=== PATIENT | male | born 1945 | race Caucasian/White ===

== ENCOUNTER 2018-10-17 05:46 | Emergency (ER) | payer MEDICARE, OTHER ==
[~2018-10-17] VITALS: Ht 170.2 cm; Wt 78.2 kg
[2018-10-17 05:53] VITALS: BP 148/70; PULSE 66; RESP 18; Ht 170.2 cm; Wt 78.2 kg
[2018-10-17] MEDS ORDERED: HDRP454O TOP (06:52)
--- NOTE | 2018-10-17 08:51 | ERD ---
ER Documentation Chief Complaint Chief Complaint nosebleeding x 2 hours HPI 73-year-old male presenting with nasal bleeding. Patient states started this morning. Patient is on Plavix and aspirin after an angiogram due to a stroke 2 years ago. Patient denies any recent trauma. He has not put any medication in the nose. Denies any allergies to medications. Medical problems of stroke, hypercholesterolemia and hypertension. Social history stopped smoking 15 years ago. Surgical history is angiogram and heart stents. ROS All systems reviewed and are negative except as per history of present illness. Medications Home Meds Active Scripts Hydrophilic Base* (Aquaphor*) 454 Gm-Topical Oint, 1 APPLIC TOP BID, #1 JAR Prov:BRITTANEY SAL PA-C 10/17/18 Allergies Allergies: Coded Allergies: No Known Drug Allergies (Verified Allergy, Unknown, 10/17/18) PMhx/Soc Hx Alcohol Use: Yes Hx Substance Use: No Hx Tobacco Use: No Smoking Status: Former smoker FmHx Family History: No diabetes, No coronary disease, No other Physical Exam Vitals Vital Signs Date Temp Pulse Resp B/P (MAP) Pulse Ox O2 O2 Flow FiO2 Time Delivery Rate 10/17/18 97.1 66 18 148/70 98 05:53 (96) Physical Exam GENERAL: The patient is well-appearing, well-nourished, in no acute distress HEENT: Atraumatic. Conjunctivae are pink. Pupils equal, round, and reactive to light. There is no scleral icterus. Tympanic membranes clear bilaterally. Oropharynx clear. Dried blood within anterior nasal passage. No blood in posterior nasal passage and no active bleeding. CHEST: Clear to auscultation bilaterally. There are no rales, wheezes or rhonchi. HEART: Regular rate and rhythm. No murmurs, clicks, rubs or gallops. No S3 or S4. SKIN: There is no apparent rash or petechiae. The skin is warm and dry. Procedures/MDM ER Course: No bleeding noted on exam. MDM: 73 yr old male complaining of nasal bleeding. Vitals are stable and I have low suspicion for posterior epistaxis. Patient did not have bleeding at the time of my evaluation and they recommended to apply Aquaphor as this is likely due to dry air and use of anticoagulation drugs. Discharged with recommendations of using a nasal clip at home and if bleeding returns and does not resolve to return to the ER as he likely needs a Rhino Rocket. All questions answered at discharge Departure Diagnosis: Primary Impression: Epistaxis Condition: Stable Patient Instructions: Epistaxis (Adult) Referrals: [facility] YOU HAVE RECEIVED A MEDICAL SCREENING EXAM AND THE RESULTS INDICATE THAT YOU DO NOT HAVE A CONDITION THAT REQUIRES URGENT TREATMENT IN THE EMERGENCY DEPARTMENT. FURTHER EVALUATION AND TREATMENT OF YOUR CONDITION CAN WAIT UNTIL YOU ARE SEEN IN YOUR DOCTORS OFFICE WITHIN THE NEXT 1-2 DAYS. IT IS YOUR RESPONSIBILITY TO MAKE AN APPOINTMENT FOR FOLOW-UP CARE. IF YOU HAVE A PRIMARY DOCTOR --you should call your primary doctor and schedule an appointment IF YOU DO NOT HAVE A PRIMARY DOCTOR YOU CAN CALL OUR PHYSICIAN REFERRAL HOTLINE AT IF YOU CAN NOT AFFORD TO SEE A PHYSICIAN YOU CAN CHOSE FROM THE FOLLOWING [facility] [address] [facility] [address] [facility] [address] [facility] [address] [facility] [address] [facility] [facility] [address] Additional Instructions: FOLLOW UP WITH YOUR PRIMARY CARE PHYSICIAN TOMORROW.Return to this facility if you are not improving as expected. BRITTANEY SAL PA-C Oct 17, 2018 08:50
[2018-10-17] MEDS ORDERED: AMOX1TAB10 PO ×2 (09:46→15:31)
[2018-10-17] MEDS ORDERED: OXYC-279 PO ×2 (09:46→15:31)
== END 2018-10-17 07:13 | disposition home or self-care (01) ==
LOC: FTE 05:46
DX: R04.0 Epistaxis (principal)
CPT/HCPCS: 99282

== ENCOUNTER 2018-10-17 08:55 | Emergency (ER) | payer MEDICARE, OTHER ==
[~2018-10-17] VITALS: Ht 170.2 cm; Wt 78.6 kg
[~2018-10-17 08:55] MED LIST: HDRP454O TOP
[2018-10-17 08:57] VITALS: BP 169/79; PULSE 77; RESP 15; Ht 170.2 cm; Wt 78.6 kg
[2018-10-17] MEDS ORDERED: OXYC-279 PO ×2 (09:46→15:31)
[2018-10-17] MEDS ORDERED: AMOX1TAB10 PO ×2 (09:46→15:31)
--- NOTE | 2018-10-17 14:34 | ERD ---
ER Documentation Chief Complaint Chief Complaint non traumatic bilateral nose bleed; was just dc from ED2. HPI 73-year-old male presenting with continued nasal bleeding. Patient was recently discharged from the ER but has had continued bleeding of the left nostril. Patient denies any traumatic injuries. Patient is taking Plavix and aspirin. Patient has had nasal clip applied. Denies other medical problems. NKDA. Surgical history angiogram after stroke and heart stent. ROS All systems reviewed and are negative except as per history of present illness. Medications Home Meds Active Scripts Oxycodone HCl/Acetaminophen (Percocet 5-325 mg Tablet) 1 Each Tablet, 1 EACH PO BID, #5 TAB Prov:BRITTANEY SAL PA-C 10/17/18 Amoxicillin/Potassium Clav (Amox-Clav 875-125 mg Tablet) 875-125 mg Tab, 1 TAB PO BID for 7 Days, #14 TAB Prov:BRITTANEY SAL PA-C 10/17/18 Hydrophilic Base* (Aquaphor*) 454 Gm-Topical Oint, 1 APPLIC TOP BID, #1 JAR Prov:BRITTANEY SAL PA-C 10/17/18 Allergies Allergies: Coded Allergies: No Known Drug Allergies (Verified Allergy, Unknown, 10/17/18) PMhx/Soc Hx Alcohol Use: Yes Hx Substance Use: No Hx Tobacco Use: No Smoking Status: Never smoker FmHx Family History: No diabetes, No coronary disease, No other Physical Exam Vitals Vital Signs Date Temp Pulse Resp B/P (MAP) Pulse Ox O2 O2 Flow FiO2 Time Delivery Rate 10/17/18 97.1 77 15 169/79 99 08:57 (109) Physical Exam GENERAL: The patient is well-appearing, well-nourished, in no acute distress HEENT: Atraumatic. Conjunctivae are pink. Pupils equal, round, and reactive to light. There is no scleral icterus. Tympanic membranes clear bilaterally. Oropharynx clear. Blood noted within the left nostril with no posterior bleeding. CHEST: Clear to auscultation bilaterally. There are no rales, wheezes or rhonchi. HEART: Regular rate and rhythm. No murmurs, clicks, rubs or gallops. No S3 or S4. Result Diagram: 10/17/18 1006 Results 24 hrs Laboratory Tests Test 10/17/18 10:06 White Blood Count 4.8 10^3/ul Red Blood Count 4.42 10^6/ul Hemoglobin 13.8 g/dl Hematocrit 41.7 % Mean Corpuscular Volume 94.3 fl Mean Corpuscular Hemoglobin 31.2 pg Mean Corpuscular Hemoglobin Concent 33.1 g/dl Red Cell Distribution Width 12.4 % Platelet Count 182 10^3/UL Mean Platelet Volume 9.7 fl Immature Granulocytes % 0.000 % Neutrophils % 57.2 % Lymphocytes % 27.6 % Monocytes % 9.8 % Eosinophils % 5.2 % Basophils % 0.2 % Nucleated Red Blood Cells % 0.0 /100WBC Immature Granulocytes # 0.000 10^3/ul Neutrophils # 2.8 10^3/ul Lymphocytes # 1.3 10^3/ul Monocytes # 0.5 10^3/ul Eosinophils # 0.3 10^3/ul Basophils # 0.0 10^3/ul Nucleated Red Blood Cells # 0.0 10^3/ul Prothrombin Time 13.7 Sec Prothrombin Time Ratio 1.1 INR International Normalized Ratio 1.04 Activated Partial Thromboplast Time 27.0 Sec Procedures/MDM ER course: Rhino Rocket inserted into left nostril. Tolerated procedure well and bleeding resolved. MDM: 73-year-old male presenting with continued epistaxis. Patient had Rhino Rocket inserted in the left nostril with resolution of epistaxis. I have low suspicion for bleeding disorder as patient's INR and CBC are within normal limits. PTT is stable. Patient is discharged with recommendations of returning tomorrow and pain medication along with antibiotics. Patient is told to also follow-up with ENT. All questions answered at discharge Departure Diagnosis: Primary Impression: Epistaxis Condition: Stable Patient Instructions: Epistaxis (Adult) Referrals: [facility] YOU HAVE RECEIVED A MEDICAL SCREENING EXAM AND THE RESULTS INDICATE THAT YOU DO NOT HAVE A CONDITION THAT REQUIRES URGENT TREATMENT IN THE EMERGENCY DEPARTMENT. FURTHER EVALUATION AND TREATMENT OF YOUR CONDITION CAN WAIT UNTIL YOU ARE SEEN IN YOUR DOCTORS OFFICE WITHIN THE NEXT 1-2 DAYS. IT IS YOUR RESPONSIBILITY TO MAKE AN APPOINTMENT FOR FOLOW-UP CARE. IF YOU HAVE A PRIMARY DOCTOR --you should call your primary doctor and schedule an appointment IF YOU DO NOT HAVE A PRIMARY DOCTOR YOU CAN CALL OUR PHYSICIAN REFERRAL HOTLINE AT IF YOU CAN NOT AFFORD TO SEE A PHYSICIAN YOU CAN CHOSE FROM THE FOLLOWING [facility] [address] [facility] [address] [facility] [address] [facility] [address] [facility]. [facility] [phone] [address] [facility] [address] Additional Instructions: FOLLOW UP WITH YOUR PRIMARY CARE PHYSICIAN TOMORROW.Return to this facility if you are not improving as expected. BRITTANEY SAL PA-C Oct 17, 2018 14:34
== END 2018-10-17 11:51 | disposition home or self-care (01) ==
LOC: FTE 08:55
DX: R04.0 Epistaxis (principal)
CPT/HCPCS: 85025; 85610; 85730

== ENCOUNTER 2018-10-18 13:33 | Emergency (ER) | payer MEDICARE, OTHER ==
[~2018-10-18] VITALS: Ht 170.2 cm; Wt 79.2 kg
[~2018-10-18 13:33] MED LIST changes: +AMOX1TAB10 PO; +OXYC-279 PO
[2018-10-18 13:50] VITALS: BP 114/75; PULSE 103; RESP 18; Ht 170.2 cm; Wt 79.2 kg
--- NOTE | 2018-10-18 14:31 | ERD ---
ER Documentation Chief Complaint Chief Complaint rhinorocket removal. instructed to come back today HPI 73-year-old male, presents to the emergency department for nasal packing removal. The patient refers feeling better, denies any active bleeding, no headache. He held his Plavix yesterday and resumed the medication today. He denies any distal weakness, numbness or tingling. ROS All systems reviewed and are negative except as per history of present illness. Medications Home Meds Active Scripts Oxycodone HCl/Acetaminophen (Percocet 5-325 mg Tablet) 1 Each Tablet, 1 EACH PO BID, #5 TAB Prov:BRITTANEY SAL PA-C 10/17/18 Amoxicillin/Potassium Clav (Amox-Clav 875-125 mg Tablet) 875-125 mg Tab, 1 TAB PO BID for 7 Days, #14 TAB Prov:BRITTANEY SAL PA-C 10/17/18 Hydrophilic Base* (Aquaphor*) 454 Gm-Topical Oint, 1 APPLIC TOP BID, #1 JAR Prov:BRITTANEY SAL PA-C 10/17/18 Allergies Allergies: Coded Allergies: No Known Drug Allergies (Verified Allergy, Unknown, 10/17/18) PMhx/Soc Hx Alcohol Use: Yes Hx Substance Use: No Hx Tobacco Use: No Smoking Status: Never smoker Physical Exam Vitals Vital Signs Date Temp Pulse Resp B/P (MAP) Pulse Ox O2 O2 Flow FiO2 Time Delivery Rate 10/18/18 98.2 103 18 114/75 99 13:50 (88) Physical Exam Const: No acute distress Head: Atraumatic Eyes: Normal Conjunctiva ENT: Nasal packing in place, no active bleeding Neck: Full range of motion. No meningismus. Resp: Clear to auscultation bilaterally Cardio: Regular rate and rhythm, no murmurs Abd: Soft, non tender, non distended. Normal bowel sounds Skin: No petechiae or rashes Back: No midline or flank tenderness Ext: No cyanosis, or edema Neur: Awake and alert Psych: Normal Mood and Affect Procedures/MDM Differential diagnosis include but not limited to: trauma, vessel fragility, rhinosinusitis, neoplasm, coagulopathy. During the ED course the patient remained stable, no new complaints. Rhino Rocket was removed without complications, no active bleeding. The patient is stable to be treated outpatient and will be discharged home with instructions to follow up If symptoms persist, worsen or new symptoms develop, then patient should return to the ED immediately. Instructions explained and given directly by me to the patient with acknowledgment and demonstrated understanding. Disclaimer: Inadvertent spelling and grammatical errors are likely due to EHR/dictation software use and do not reflect on the overall quality of patient care. Also, please note that the electronic time recorded on this note does not necessarily reflect the actual time of the patient encounter. Departure Diagnosis: Primary Impression: Encounter for removal of nasal packing Condition: Stable Additional Instructions: Thank you very much for allowing us to participate in your care. Your health and safety is our top priority at [facility]. Call your primary care doctor TOMORROW for an appointment during the next 2-4 days and bring all the information and medications prescribed. Have prescriptions filled and follow precisely the directions on the label. If the symptoms get worse and your provider is unavailable, return to the Emergency Department immediately. BEAR GOOD MD Oct 18, 2018 14:31
== END 2018-10-18 14:41 | disposition home or self-care (01) ==
LOC: FTE 13:33
DX: Z48.00 Encounter for change or removal of nonsurgical wound dressing (principal)
CPT/HCPCS: 99281